=== PATIENT | female | born 1980 | race Caucasian/White ===

== ENCOUNTER 2019-07-30 10:29 | Emergency (ER) | payer MEDICAID ==
[~2019-07-30] VITALS: Ht 160 cm; Wt 61.0 kg
[2019-07-30 10:43] VITALS: BP 136/99
== END 2019-07-30 12:23 | disposition home or self-care (01) ==
LOC: ER 10:30
DX: S66.911A Strain of unspecified muscle, fascia and tendon at wrist and hand level, right hand, initial encounter (principal); S50.01XA Contusion of right elbow, initial encounter; W18.49XA Other slipping, tripping and stumbling without falling, initial encounter; Y93.89 Activity, other specified; Y92.89 Other specified places as the place of occurrence of the external cause; Y99.9 Unspecified external cause status
CPT/HCPCS: 29125; 73090; 73110; 73130; 99284

== ENCOUNTER 2019-11-09 13:22 | Emergency (ER) | payer MEDICAID ==
[~2019-11-09] VITALS: Ht 160 cm; Wt 61.0 kg
[2019-11-09 13:56] VITALS: BP 117/77
== END 2019-11-09 15:22 | disposition home or self-care (01) ==
LOC: ER 13:23
DX: J06.9 Acute upper respiratory infection, unspecified (principal); F17.210 Nicotine dependence, cigarettes, uncomplicated
CPT/HCPCS: 99281

== ENCOUNTER 2019-12-19 07:51 | Emergency (ER) | payer MEDICAID ==
[~2019-12-19] VITALS: Ht 160 cm; Wt 62.4 kg
--- NOTE | 2019-12-19 08:01 | NUR ---
WAS CARRYING SOMETHING DOWN SOME STAIRS WHEN SHE FELL AND HURT HER r FOOT
[2019-12-19] MEDS ORDERED: acetaminophen 325mg tablet PO ONE (08:50)
[2019-12-19 08:54] VITALS: BP 119/73
== END 2019-12-19 09:09 | disposition home or self-care (01) ==
LOC: ER 07:51
DX: S93.692A Other sprain of left foot, initial encounter (principal); S93.492A Sprain of other ligament of left ankle, initial encounter; Z72.89 Other problems related to lifestyle; W10.8XXA Fall (on) (from) other stairs and steps, initial encounter; Y93.89 Activity, other specified; Y92.89 Other specified places as the place of occurrence of the external cause; Y99.8 Other external cause status
CPT/HCPCS: 73630; 99284

== ENCOUNTER 2021-04-12 06:03 | Emergency (ER) | payer MEDICAID ==
[~2021-04-12] VITALS: Ht 160 cm; Wt 55.0 kg
[2021-04-12 06:07] VITALS: BP 114/64
[2021-04-12] MEDS ORDERED: AMOX-422 PO (08:01)
== END 2021-04-12 08:05 | disposition home or self-care (01) ==
LOC: ER 06:04
DX: J01.90 Acute sinusitis, unspecified (principal); J34.89 Other specified disorders of nose and nasal sinuses; Z72.89 Other problems related to lifestyle; Z79.2 Long term (current) use of antibiotics
CPT/HCPCS: 99283